=== PATIENT | female | born 2000 | race Two or more races ===

== ENCOUNTER 2019-01-30 13:36 | Day surgery (SDC) | payer OTHER ==
[~2019-01-30] VITALS: Ht 172.7 cm; Wt 72.0 kg
[2019-01-30 14:30] VITALS: Ht 172.7 cm; Wt 72.0 kg
[2019-01-30 15:04] VITALS: BP 118/62; PULSE 48; RESP 20
[2019-01-30 15:25] VITALS: BP 100/54; PULSE 51; RESP 19
[2019-01-30 15:30] VITALS: BP 107/52; PULSE 44; RESP 18
[2019-01-30] MEDS ORDERED: LIDOCAINE 2% (SDV) 5 ML INJ ONE (15:30)
[2019-01-30] MEDS ORDERED: PROPOFOL 20 ML ONE (15:30)
[2019-01-30] MEDS ORDERED: FENTAnyl 50 MCG/ML VIAL ONE (15:30)
[2019-01-30 15:55] VITALS: BP 112/67; PULSE 58; RESP 19
== END 2019-01-30 16:32 | disposition home or self-care (01) ==
LOC: GIL 13:36
PROVIDERS: ATTEND Internal Medicine Gastroenterology
DX: K29.30 Chronic superficial gastritis without bleeding (principal)
CPT/HCPCS: 43239; 84703; 88305; 88312; J3010; Z7610